=== PATIENT | male | born 1955 | race Hispanic/Latino ===

== ENCOUNTER 2017-11-10 05:37 | Emergency (ER) | payer OTHER ==
[~2017-11-10 05:37] MED LIST: ASPI-555 PO; ATOR40TA71 PO; EZET10 PO; FISH1CAP49 PO; INSU100V3 PO; INSU100V3 SQ; METF500T6 PO; NPH,100V SQ; vitamin b12 PO
[2017-11-10] MEDS ORDERED: KETOROLAC TROMETHAMINE 60 MG/2 ML VIAL ONE (05:58)
[2017-11-10] MEDS ORDERED: DIAZEPAM 2 MG TAB ONE (05:58)
== END 2017-11-10 06:50 | disposition home or self-care (01) ==
LOC: EDH 05:37
DX: M25.512 Pain in left shoulder (principal); E78.5 Hyperlipidemia, unspecified; I10 Essential (primary) hypertension; E11.9 Type 2 diabetes mellitus without complications; Z86.73 Personal history of transient ischemic attack (TIA), and cerebral infarction without residual deficits; Z88.0 Allergy status to penicillin
CPT/HCPCS: 73030; 93005; 96372; 99284; J1885

== ENCOUNTER 2018-06-13 19:27 | Inpatient (IN) | payer MEDICARE, OTHER | END 2018-06-14 19:10 | disposition home or self-care (01) | LOC: EDH 19:27 → 3DH 06-14 02:42 → EDHIP 23:37 ==

== ENCOUNTER 2019-07-23 06:17 | Observation (INO) | payer MEDICARE, OTHER ==
[2019-07-15 12:04] LABS: BASOPHILS % (AUTO) 1.1 % (0.0-5.0); EOSINOPHILS % (AUTO) 3.4 % (0.0-8.0); HEMATOCRIT 45.3 % (42-54); MEAN CORPUSCULAR HEMOGLOBIN 29.1 pg (27.0-33.0); MONOCYTES % (AUTO) 6.4 % (3.0-13.0); PLATELET COUNT (AUTO) 257 K/uL (130-400); RED BLOOD CELL COUNT(AUTO) 4.98 MIL/uL (4.50-6.20); WHITE BLOOD COUNT (AUTO) 7.4 K/uL (4.8-10.8)
[2019-07-15 12:17] LABS: INR 0.93 (0.85-1.15); PARTIAL THROMBOPLASTIN TIME 28.7 SEC (26.3-35.5); PROTHROMBIN TIME 9.8 SEC (9.6-11.6)
[2019-07-15 12:21] VITALS: BP 148/66
[2019-07-23] VITALS (22 sets, daily range): BP systolic 96–162; BP diastolic 33–96
[~2019-07-23] VITALS: Ht 162.6 cm; Wt 98.7 kg
[~2019-07-23 06:17] MED LIST changes: -EZET10 PO; +EZET10TA13 PO; -FISH1CAP49 PO; +LISI10TA7 PO; +METF-446 PO; -METF500T6 PO; -vitamin b12 PO
[2019-07-23] MEDS ORDERED: SODIUM CHLORIDE 0.9% 1000ML 1,000 ML IV ONE (06:42)
[2019-07-23] MEDS ORDERED: CEFAZOLIN SODIUM 1 GM VIAL ONE (06:42)
[2019-07-23] MEDS ORDERED: LIDOCAINE PF 2% 5ML ABBOJECT ONE (07:06)
[2019-07-23] MEDS ORDERED: SUCCINYLCHOLINE 200MG/10ML SYR ONE (07:06)
[2019-07-23] MEDS ORDERED: PROPOFOL 10 MG/ML 20ML VIAL IV ONE (07:07)
[2019-07-23] MEDS ORDERED: FENTANYL CITRATE PF 50 MCG/1 ML 2ML VIAL ONE (07:07)
[2019-07-23] MEDS ORDERED: ROCURONIUM 10MG/1ML SYR 10 MG/ML ML ONE (07:07)
[2019-07-23] MEDS ORDERED: ROPIVACAINE 0.5% 5MG/ML 30ML IJ ONE (07:15)
[2019-07-23] MEDS ORDERED: SODIUM CHLORIDE 0.9% 10 ML VIAL ONE ×2 (07:17→09:47)
[2019-07-23] MEDS ORDERED: CLINDAMYCIN 900 MG/D5% WATER 50 ML IV ONE (08:00)
[2019-07-23] MEDS ORDERED: TRANEXAMIC ACID 1000MG/10ML ONE (08:34)
[2019-07-23] MEDS ORDERED: GLYCOPYRROLATE 1 MG/5 ML SYRINGE ONE (09:47)
[2019-07-23] MEDS ORDERED: PHENYLEPHRINE HCL 10 MG/ML 1ML VIAL IV ONE (09:47)
[2019-07-23] MEDS ORDERED: EPHEDRINE SULFATE 50 MG/ML AMPULE ONE (10:30)
[2019-07-23] MEDS ORDERED: NEOSTIGMINE 5MG/5ML SYR IV ONE (11:39)
[2019-07-23] MEDS ORDERED: ONDANSETRON HCL 4 MG/2 ML VIAL ONE (11:42)
[2019-07-23] MEDS ORDERED: KETOROLAC TROMETHAMINE 30MG/ML ONE (11:51)
[2019-07-23] MEDS: SODIUM CHLORIDE 0.9% 1000ML 1,000 ML IV SCH ×2 (11:56→21:56)
[2019-07-23] MEDS ORDERED: ONDANSETRON HCL 4 MG/2 ML VIAL IVP PRN (12:00)
[2019-07-23] MEDS: ACETAMINOPHEN EXTRA STRENGTH 500 MG TABLET PO SCH ×2 (12:00→21:07)
[2019-07-23] MEDS: INSULIN HUMULIN R 100 UNIT/ML 3ML SQ SCH ×3 (15:51→21:00)
[2019-07-23] MEDS: CLINDAMYCIN 900 MG/D5% WATER 50 ML IV SCH (16:12)
[2019-07-23] MEDS: METFORMIN HCL 500 MG TABLET PO SCH (16:14)
--- NOTE | 2019-07-23 17:15 | NUR ---
INITIAL Patient lives with spouse, Isabel Mosquera, [phone]. No home services. DME: BPM, glucometer (uses insulin), walker with seat, shower chair. Patient is able to complete ADL's but needs assistance at times. Patient does drive. PCP is Dr. Lloyd Brennan. Pharmacy is [facility] in [place]. DCP is home. Addendum: 07/23/19 at 1717 by SUNITHA WILSON SS Amended: Links added.
--- NOTE | 2019-07-23 20:20 | NUR ---
PT UP TO BEDSIDE COMMODE WITH ASSISTANCE
[2019-07-23] MEDS ORDERED: INSULIN NPH 100 UNIT/ML 3ML SQ SCH (21:00)
[2019-07-23] MEDS ORDERED: INSULIN HUMULIN R 100 UNIT/ML 3ML SQ SCH (21:00)
[2019-07-23] MEDS: FAMOTIDINE 20MG TAB 20 MG TAB PO SCH (21:07)
[2019-07-23] MEDS: ASPIRIN 81 MG EC TAB PO SCH (21:07)
[2019-07-23] MEDS: CELECOXIB 200 MG CAP PO SCH (21:07)
[2019-07-23] MEDS: MORPHINE SULFATE 4 MG/1ML SYG IVP PRN (23:27)
[2019-07-24] MEDS: CLINDAMYCIN 900 MG/D5% WATER 50 ML IV SCH (01:00)
[2019-07-24 03:28] VITALS: BP 103/59
[2019-07-24] MEDS: ACETAMINOPHEN EXTRA STRENGTH 500 MG TABLET PO SCH ×2 (04:04→12:13)
[2019-07-24 04:08] LABS: HEMATOCRIT 32.7 % (42-54); MEAN CORPUSCULAR HEMOGLOBIN 29.7 pg (27.0-33.0); MEAN CORPUSCULAR HGB CONC 31.8 g/dL (32.0-36.0); MEAN CORPUSCULAR VOLUME 93.4 fL (79-99); PLATELET COUNT (AUTO) 197 K/uL (130-400); RED CELL DISTRIBUTION WIDTH 14.5 % (11.0-15.5); WHITE BLOOD COUNT (AUTO) 9.5 K/uL (4.8-10.8)
[2019-07-24] MEDS: MORPHINE SULFATE 4 MG/1ML SYG IVP PRN ×2 (04:12→08:09)
[2019-07-24 04:24] LABS: POTASSIUM 4.3 mmol/L (3.5-5.1)
--- NOTE | 2019-07-24 07:10 | NUR ---
PT DANGLED AT BEDSIDE.
[2019-07-24] MEDS: INSULIN HUMULIN R 100 UNIT/ML 3ML SQ SCH ×6 (07:25→18:16)
[2019-07-24] MEDS: SODIUM CHLORIDE 0.9% 1000ML 1,000 ML IV SCH (07:56)
[2019-07-24] MEDS: METFORMIN HCL 500 MG TABLET PO SCH ×2 (07:59→16:17)
[2019-07-24 08:00] VITALS: BP 134/61
[2019-07-24] MEDS ORDERED: LISINOPRIL 10 MG TABLET PO SCH (09:00)
[2019-07-24] MEDS: CELECOXIB 200 MG CAP PO SCH (09:00)
[2019-07-24] MEDS ORDERED: INSULIN NPH 100 UNIT/ML 3ML SQ SCH (09:00)
[2019-07-24] MEDS ORDERED: EZETIMIBE 10 MG TAB PO SCH (09:00)
[2019-07-24] MEDS ORDERED: POLYETHYLENE GLYCOL 3350 17 GM POWD.PACK PO SCH (09:00)
[2019-07-24] MEDS: ASPIRIN 81 MG EC TAB PO SCH (09:45)
[2019-07-24] MEDS: FAMOTIDINE 20MG TAB 20 MG TAB PO SCH (09:45)
[2019-07-24] MEDS ORDERED: TRAMADOL HCL 50 MG TABLET PO PRN (11:45)
[2019-07-24] MEDS ORDERED: KETOROLAC TROMETHAMINE 15MG/ML IM PRN (11:45)
[2019-07-24] MEDS ORDERED: OXYCODONE HCL 5 MG TAB PO PRN (11:45)
[2019-07-24] MEDS: OXYCODONE HCL 5 MG TAB PO PRN ×2 (12:00→16:18)
--- NOTE | 2019-07-24 12:29 | NUR ---
[id number] patient signed YOUNGER Letter, I faxed YOUNGER Letter to [phone] and placed in chart under consent tab
[2019-07-24 16:00] VITALS: BP 169/72
--- NOTE | 2019-07-24 17:45 | NUR ---
DISCHARGE INSTRUCTION GIVEN TO PATIENT AND , IV REMOVED AND SITE DRESSED, REVIEWED [employer] DRESSING FLASKING GREEN LIGHT SHOWS DRESSING IS SEAL AND NOT LEAKING, TO TURN OFF AND REMOVE DEVICE FROM DRESSING WHEN SHOWERING ( NOT TO GET DEVICE WET,T0 PAT DRY LEG AND RECONNECT DEVICE,, REVIEWED FOLLOW-UP APPOINTMENT WITH DR SHAFFER OFFICE TO TO CALL OFFICE FOR ANY QUESTIONS OR CONCERNS.PATIENT STATES PAIN LEVEL IS LOW 1-2 NOW, AND HAS PAIN MEDICATION THAT DR SHAFFER ORDERED FOR HIM. [employer] DRESSING CHANGED, AND RECONNECT AND PATIENT NOT TO REMOVE DRESSING , DRESSING WILL BE REMOVED AT HIS FOLLOW-UP APPOINTMENT WITH DR SHAFFER.INSTRUCTING GIVEN FOR NO DRIVING, BATHING OR SWIMMING AND TO REPORT ANY ISSUES TO DR SHAFFER , PATIENT TAKING TO LOBBY VIA WHEELCHAIR AND LEFT WITH FOR HOME
[2019-07-26] MEDS ORDERED: BISACODYL 10 MG SUPP.RECT RC PRN (12:00)
== END 2019-07-24 18:27 | disposition home or self-care (01) ==
LOC: DAH 06:17 → DAHIP 06:18 → DAH 06:18 → 4BH 12:52
PROVIDERS: ADMIT Orthopaedic Surgery; ATTEND Orthopaedic Surgery
DX: M17.12 Unilateral primary osteoarthritis, left knee (principal); E11.9 Type 2 diabetes mellitus without complications; Z79.4 Long term (current) use of insulin
CPT/HCPCS: 27447; 36415 ×3; 80048 ×2; 82948 ×7; 85025; 85027; 85610; 85730; 86850; 86900; 86901; 96365; 96366; 96372 ×3; 96375 ×2; 96376; 97039; 97116 ×2; 97161; 97530 ×3; A4215; A4221; A4222; A4223; A4450; A4649 ×6; A4663; A4930; A6223; A6260; C1776; G0378 ×18; G8979; G8980; G8981; G8982; G8983; J0330; J1815 ×6; J1885 ×2; J2001; J2270 ×3; J2370; J2405 ×2; J2704; J2710; J2795; J3010; J3490 ×6; J7030 ×2; J0690

== ENCOUNTER → 2022-11-01 | Outpatient (CLI) | payer OTHER ==
[~2022-11-01] MED LIST changes: -ASPI-555 PO; +ASPI-556 PO; +LISI10TA24 PO; -LISI10TA7 PO
== END | disposition home or self-care (01) ==
LOC: RAH 13:12
PROVIDERS: ATTEND Internal Medicine
DX: R63.30 Feeding difficulties, unspecified (principal); R13.10 Dysphagia, unspecified
CPT/HCPCS: 74230; 92611

== ENCOUNTER → 2023-12-23 | Outpatient (CLI) | payer OTHER ==
[~2023-12-23] MED LIST changes: -EZET10TA13 PO; +EZET10TA81 PO
[2023-12-23 22:55] VITALS: PULSE 74; RESP 16
[2023-12-23 23:33] VITALS: PULSE 68; RESP 16
[2023-12-24] VITALS (11 sets, daily range): PULSE 63–77; RESP 14–16
== END | disposition home or self-care (01) ==
LOC: SLP 20:45
PROVIDERS: ATTEND Family Medicine
DX: G47.33 Obstructive sleep apnea (adult) (pediatric) (principal); I10 Essential (primary) hypertension
CPT/HCPCS: 95810

== ENCOUNTER → 2024-01-14 | Outpatient (CLI) | payer OTHER ==
[2024-01-14] VITALS (8 sets, daily range): PULSE 69–78; RESP 24–28
[2024-01-15] VITALS (12 sets, daily range): PULSE 62–73; RESP 19–22
== END | disposition home or self-care (01) ==
LOC: SLP 20:21
PROVIDERS: ATTEND Family Medicine
DX: G47.33 Obstructive sleep apnea (adult) (pediatric) (principal); I10 Essential (primary) hypertension; E11.9 Type 2 diabetes mellitus without complications; R09.02 Hypoxemia
CPT/HCPCS: 95811

== ENCOUNTER 2024-01-23 05:55 | Day surgery (SDC) | payer OTHER ==
[2024-01-23] VITALS (11 sets, daily range): BP systolic 126–148; BP diastolic 49–83; PULSE 58–69; RESP 14–19; TEMP 96.5–97.5
[~2024-01-23] VITALS: Ht 160 cm; Wt 108.0 kg
[~2024-01-23 05:55] MED LIST changes: +ALBU18HF7 IH; +CYAN-106 PO; +FERS325 PO; +FLUT12AE21 IH; -INSU100V3 SQ; +OMEG100033 PO; +OMEP40CA21 PO
[2024-01-23] MEDS: 0.9%NACL 1000ML 1,000 ML IV ONE (06:39)
[2024-01-23] MEDS ORDERED: proPOFol 10 MG/ML 20ML VIAL IV ONE (07:28)
== END 2024-01-23 09:40 | disposition home or self-care (01) ==
LOC: ENDO 05:55 → DAH 05:55 → ENDO 09:40
PROVIDERS: ATTEND Internal Medicine Gastroenterology
DX: Z09 Encounter for follow-up examination after completed treatment for conditions other than malignant neoplasm (principal); K64.0 First degree hemorrhoids; D12.5 Benign neoplasm of sigmoid colon; D12.4 Benign neoplasm of descending colon; D12.2 Benign neoplasm of ascending colon; I10 Essential (primary) hypertension; E11.9 Type 2 diabetes mellitus without complications; E66.9 Obesity, unspecified; J44.9 Chronic obstructive pulmonary disease, unspecified; E78.5 Hyperlipidemia, unspecified; K21.9 Gastro-esophageal reflux disease without esophagitis; Z86.73 Personal history of transient ischemic attack (TIA), and cerebral infarction without residual deficits; Z88.0 Allergy status to penicillin; Z79.82 Long term (current) use of aspirin; Z79.84 Long term (current) use of oral hypoglycemic drugs; Z79.899 Other long term (current) drug therapy; Z90.49 Acquired absence of other specified parts of digestive tract; Z96.659 Presence of unspecified artificial knee joint; Z68.41 Body mass index [BMI] 40.0-44.9, adult
CPT/HCPCS: 82948 ×2; 45385; J7030 ×2; J2704; A4620; A7002; J3490